=== PATIENT | female | born 1940 | race Caucasian/White ===

== ENCOUNTER 2019-10-30 16:44 | Observation (INO) ==
[2019-10-30] MEDS ORDERED: Ondansetron 4 MG/2 ML VIAL IVP PRN (17:49)
[2019-10-30] MEDS ORDERED: Mag Hydrox/Al Hydrox/Simeth 30 ML UDC PO PRN (17:49)
[2019-10-30] MEDS ORDERED: Naloxone 0.4 MG/ML INJ IVP PRN (17:49)
[2019-10-30] MEDS ORDERED: MOM Conc 10 ML UD.LIQ PO PRN (17:49)
[2019-10-30 18:46] LABS: Hematocrit 37.1 % (35.3-44.9); Hemoglobin 12.7 g/dL (11.5-15.4); Mean Corpuscular HGB Conc 34.2 g/dL (31.6-35.5); Mean Corpuscular Hemoglobin 32.2 pg (28.0-33.3); Mean Corpuscular Volume 93.9 fL (83.0-100.0); Mean Platelet Volume 10.2 fL (9.4-12.4); Monocytes # 0.7 K/mcL (0.0-1.3); Nucleated Red Blood Cells 0.1 /100 WBC (0); Platelet Count 178 K/mcL (140-400); Red Blood Count 3.95 M/mcL (3.82-4.97)
[2019-10-30 18:54] LABS: White Blood Count 35.3 K/mcL (4.3-11.1)
[2019-10-30 18:58] LABS: Alanine Aminotransferase 7 Units/L (7-52); Albumin 4.2 g/dL (3.5-5.7); Albumin/Globulin Ratio 1.6 (1.1-2.2); Alkaline Phosphatase 69 Units/L (34-104); Aspartate Amino Transferase 16 Units/L (13-39); BUN/Creatinine Ratio 17 (6-26); Bilirubin,Total 0.7 mg/dL (0.3-1.0); Blood Urea Nitrogen 14 mg/dL (8-23); Carbon Dioxide 29 mEq/L (23-29); Chloride 97 mEq/L (98-107); Globulin 2.6 g/dL (2.4-3.5); Glucose 107 mg/dL (70-105); Magnesium 2.3 mg/dL (1.6-2.6); Osmolality,Calculated 275 (280-300); Potassium 4.3 mEq/L (3.5-5.1); Sodium 132 mEq/L (136-145); Total Protein 6.8 g/dL (6.4-8.9); eGFR For African Americans > 60 (> 60); eGFR For Non-African Americans > 60 (> 60)
[2019-10-30 19:03] LABS: Prothrombin Time 11.5 Seconds (9.4-12.1)
[2019-10-30 19:14] LABS: Lymphocytes # 24.7 K/mcL (0.6-4.6); Neutrophils # 9.9 K/mcL (1.6-8.9); Platelet Estimate Normal (Normal); Smudge Cells Present (Not Present)
[2019-10-31] MEDS: *HR* OxyCODONE Immed Rel 5 MG TABLET PO PRN ×3 (00:54→20:17)
[2019-10-31 01:19] LABS: Bilirubin,Urine Negative (Negative); Blood,Urine Trace-lysed (Negative); Clarity,Urine Clear (Clear); Color,Urine Yellow (Yellow); Glucose,Urine (UA) Normal (Normal); Ketones,Urine 15 mg/dL (Negative); Leukocyte Esterase,Urine Large (Negative); Nitrite,Urine Negative (Negative); PH,Urine 5.5 pH Units (5.0-8.0); Protein,Urine Negative (Neg-Trace); Urobilinogen,Urine Normal (Normal)
[2019-10-31 01:26] LABS: Bacteria,Urine Few per hpf (None-Few); Squamous Epithelial Cell,Urine Few per lpf (None-Few); Transitional Epi Cells,Urine Few per hpf (None-Few); WBC,Urine 15-30 per hpf (0-3)
[2019-10-31] MEDS: amLODIPine 5 MG TABLET PO SCH (08:54)
[2019-10-31] MEDS: atenoloL 50 MG TABLET PO SCH (08:54)
[2019-10-31] MEDS: risperiDONE 0.25 MG TABLET PO SCH (08:54)
[2019-10-31] MEDS: Folic Acid 1 MG TABLET PO SCH (08:54)
[2019-10-31] MEDS: Aspirin Enteric Coated 81 MG Tablet PO SCH (08:54)
[2019-10-31] MEDS: Ascorbic Acid 500 MG TABLET PO SCH (08:54)
[2019-10-31 10:42] LABS: Hematocrit 34.3 % (35.3-44.9); Hemoglobin 11.6 g/dL (11.5-15.4); Mean Corpuscular HGB Conc 33.8 g/dL (31.6-35.5); Mean Corpuscular Volume 94.8 fL (83.0-100.0); Mean Platelet Volume 10.1 fL (9.4-12.4); Platelet Count 144 K/mcL (140-400); Red Blood Count 3.62 M/mcL (3.82-4.97); Red Cell Distribution Width 13.2 % (11.5-14.5); White Blood Count 25.2 K/mcL (4.3-11.1)
[2019-10-31 10:57] LABS: BUN/Creatinine Ratio 18 (6-26); Blood Urea Nitrogen 16 mg/dL (8-23); Calcium 8.5 mg/dL (8.6-10.3); Carbon Dioxide 28 mEq/L (23-29); Chloride 98 mEq/L (98-107); Glucose 105 mg/dL (70-105); Osmolality,Calculated 276 (280-300); Potassium 3.9 mEq/L (3.5-5.1); Sodium 132 mEq/L (136-145); eGFR For African Americans > 60 (> 60); eGFR For Non-African Americans > 60 (> 60)
[2019-10-31 11:16] LABS: Lymphocytes # 20.7 K/mcL (0.6-4.6)
[2019-10-31 11:17] LABS: Platelet Estimate Decreased (Normal); Reactive Lymphocytes Present (Not Present); Smudge Cells Present (Not Present)
[2019-11-01] MEDS: atenoloL 50 MG TABLET PO SCH (08:53)
[2019-11-01] MEDS: Ascorbic Acid 500 MG TABLET PO SCH (08:53)
[2019-11-01] MEDS: risperiDONE 0.25 MG TABLET PO SCH (08:53)
[2019-11-01] MEDS: Folic Acid 1 MG TABLET PO SCH (08:54)
[2019-11-01] MEDS: Aspirin Enteric Coated 81 MG Tablet PO SCH (08:54)
[2019-11-01] MEDS: amLODIPine 5 MG TABLET PO SCH (08:54)
[2019-11-01 09:28] LABS: Hematocrit 38.3 % (35.3-44.9); Hemoglobin 12.9 g/dL (11.5-15.4); Mean Corpuscular HGB Conc 33.7 g/dL (31.6-35.5); Mean Corpuscular Hemoglobin 32.1 pg (28.0-33.3); Mean Corpuscular Volume 95.3 fL (83.0-100.0); Mean Platelet Volume 10.3 fL (9.4-12.4); Nucleated Red Blood Cells 0.1 /100 WBC (0); Platelet Count 170 K/mcL (140-400); Red Blood Count 4.02 M/mcL (3.82-4.97); Red Cell Distribution Width 13.1 % (11.5-14.5); White Blood Count 27.7 K/mcL (4.3-11.1)
[2019-11-01 09:33] LABS: BUN/Creatinine Ratio 18 (6-26); Blood Urea Nitrogen 15 mg/dL (8-23); Carbon Dioxide 32 mEq/L (23-29); Chloride 96 mEq/L (98-107); Glucose 119 mg/dL (70-105); Osmolality,Calculated 276 (280-300); Potassium 3.9 mEq/L (3.5-5.1); Sodium 132 mEq/L (136-145); eGFR For African Americans > 60 (> 60); eGFR For Non-African Americans > 60 (> 60)
[2019-11-01 11:36] LABS: Lymphocytes # 22.2 K/mcL (0.6-4.6); Neutrophils # 5.5 K/mcL (1.6-8.9); Platelet Estimate Normal (Normal); Smudge Cells Present (Not Present)
[2019-11-01] MEDS: 0.9 % Sodium Chloride 1,000 ML IVC SCH (19:43)
[2019-11-01] MEDS: *HR* OxyCODONE Immed Rel 5 MG TABLET PO PRN (22:53)
[2019-11-02] MEDS: Melatonin 3 MG TABLET PO PRN ×2 (02:13→21:08)
[2019-11-02] MEDS: Acetaminophen 325 MG TABLET PO PRN ×2 (05:26→21:08)
[2019-11-02 07:56] LABS: Hematocrit 36.5 % (35.3-44.9); Hemoglobin 12.6 g/dL (11.5-15.4); Mean Corpuscular HGB Conc 34.5 g/dL (31.6-35.5); Mean Corpuscular Hemoglobin 32.1 pg (28.0-33.3); Mean Corpuscular Volume 92.9 fL (83.0-100.0); Mean Platelet Volume 10.1 fL (9.4-12.4); Platelet Count 181 K/mcL (140-400); Red Blood Count 3.93 M/mcL (3.82-4.97); Red Cell Distribution Width 12.9 % (11.5-14.5)
[2019-11-02 08:22] LABS: BUN/Creatinine Ratio 22 (6-26); Blood Urea Nitrogen 16 mg/dL (8-23); Calcium 8.8 mg/dL (8.6-10.3); Carbon Dioxide 25 mEq/L (23-29); Chloride 98 mEq/L (98-107); Glucose 120 mg/dL (70-105); Osmolality,Calculated 274 (280-300); Potassium 4.1 mEq/L (3.5-5.1); Sodium 131 mEq/L (136-145); eGFR For African Americans > 60 (> 60); eGFR For Non-African Americans > 60 (> 60)
[2019-11-02 08:36] LABS: Lymphocytes # 25.1 K/mcL (0.6-4.6); Neutrophils # 5.9 K/mcL (1.6-8.9); Platelet Estimate Normal (Normal); Smudge Cells Present (Not Present)
[2019-11-02] MEDS: Folic Acid 1 MG TABLET PO SCH (08:46)
[2019-11-02] MEDS: atenoloL 50 MG TABLET PO SCH (08:46)
[2019-11-02] MEDS: amLODIPine 5 MG TABLET PO SCH (08:46)
[2019-11-02] MEDS: Ascorbic Acid 500 MG TABLET PO SCH (08:46)
[2019-11-02] MEDS: risperiDONE 0.25 MG TABLET PO SCH (08:46)
[2019-11-02] MEDS: Aspirin Enteric Coated 81 MG Tablet PO SCH (08:46)
[2019-11-02] MEDS: Amoxicillin 500 MG CAPSULE PO SCH ×2 (12:51→21:08)
[2019-11-02] MEDS: 0.9 % Sodium Chloride 1,000 ML IVC SCH ×2 (12:56→23:24)
[2019-11-03] MEDS: 0.9 % Sodium Chloride 1,000 ML IVC SCH (01:56)
[2019-11-03 06:45] LABS: Basophils % 0.2 %; Eosinophils # 0.1 K/mcL (0.0-0.6); Eosinophils % 0.6 %; Hematocrit 33.1 % (35.3-44.9); Hemoglobin 11.3 g/dL (11.5-15.4); Immature Granulocytes % 0.3 % (0-4); Lymphocytes # 15.7 K/mcL (0.6-4.6); Lymphocytes % 74.7 %; Mean Corpuscular HGB Conc 34.1 g/dL (31.6-35.5); Mean Corpuscular Hemoglobin 31.8 pg (28.0-33.3); Mean Corpuscular Volume 93.2 fL (83.0-100.0); Monocytes # 0.4 K/mcL (0.0-1.3); Monocytes % 1.7 %; Neutrophils # 4.7 K/mcL (1.6-8.9); Platelet Count 168 K/mcL (140-400); Red Blood Count 3.55 M/mcL (3.82-4.97); Red Cell Distribution Width 12.8 % (11.5-14.5); Segmented Neutrophils % 22.5 %
[2019-11-03 07:08] LABS: BUN/Creatinine Ratio 19 (6-26); Blood Urea Nitrogen 11 mg/dL (8-23); Calcium 8.3 mg/dL (8.6-10.3); Carbon Dioxide 26 mEq/L (23-29); Chloride 102 mEq/L (98-107); Glucose 104 mg/dL (70-105); Osmolality,Calculated 282 (280-300); Potassium 3.9 mEq/L (3.5-5.1); Sodium 136 mEq/L (136-145); eGFR For African Americans > 60 (> 60); eGFR For Non-African Americans > 60 (> 60)
[2019-11-03 08:11] LABS: Anisocytosis 1+ (Not Present); Platelet Estimate Normal (Normal); Reactive Lymphocytes Present (Not Present); Smudge Cells Present (Not Present)
[2019-11-03] MEDS: Ascorbic Acid 500 MG TABLET PO SCH (08:57)
[2019-11-03] MEDS: Folic Acid 1 MG TABLET PO SCH (08:57)
[2019-11-03] MEDS: Amoxicillin 500 MG CAPSULE PO SCH ×2 (08:57→20:27)
[2019-11-03] MEDS: risperiDONE 0.25 MG TABLET PO SCH (08:58)
[2019-11-03] MEDS: Aspirin Enteric Coated 81 MG Tablet PO SCH (08:58)
[2019-11-03] MEDS: atenoloL 50 MG TABLET PO SCH (08:58)
[2019-11-03] MEDS: amLODIPine 5 MG TABLET PO SCH (08:58)
[2019-11-03] MEDS: Acetaminophen 325 MG TABLET PO PRN (15:21)
[2019-11-03] MEDS: Melatonin 3 MG TABLET PO PRN (21:21)
[2019-11-04] MEDS: amLODIPine 5 MG TABLET PO SCH (08:19)
[2019-11-04] MEDS: Ascorbic Acid 500 MG TABLET PO SCH (08:19)
[2019-11-04] MEDS: risperiDONE 0.25 MG TABLET PO SCH (08:19)
[2019-11-04] MEDS: Folic Acid 1 MG TABLET PO SCH (08:19)
[2019-11-04] MEDS: atenoloL 50 MG TABLET PO SCH (08:20)
[2019-11-04] MEDS: Amoxicillin 500 MG CAPSULE PO SCH ×2 (08:28→20:35)
[2019-11-04] MEDS: Aspirin Enteric Coated 81 MG Tablet PO SCH (08:29)
[2019-11-04 13:45] LABS: BUN/Creatinine Ratio 14 (6-26); Blood Urea Nitrogen 10 mg/dL (8-23); Calcium 8.8 mg/dL (8.6-10.3); Carbon Dioxide 27 mEq/L (23-29); Chloride 98 mEq/L (98-107); Glucose 148 mg/dL (70-105); Osmolality,Calculated 278 (280-300); Potassium 3.6 mEq/L (3.5-5.1); Sodium 133 mEq/L (136-145); eGFR For African Americans > 60 (> 60); eGFR For Non-African Americans > 60 (> 60)
[2019-11-05] MEDS: Melatonin 3 MG TABLET PO PRN (00:15)
[2019-11-05 07:37] VITALS: BP 124/71
[2019-11-05] MEDS: Aspirin Enteric Coated 81 MG Tablet PO SCH (08:11)
[2019-11-05] MEDS: Amoxicillin 500 MG CAPSULE PO SCH (08:11)
[2019-11-05] MEDS: Ascorbic Acid 500 MG TABLET PO SCH (08:11)
[2019-11-05] MEDS: Folic Acid 1 MG TABLET PO SCH (08:11)
[2019-11-05] MEDS: amLODIPine 5 MG TABLET PO SCH (08:11)
[2019-11-05] MEDS: risperiDONE 0.25 MG TABLET PO SCH (08:11)
[2019-11-05] MEDS: Acetaminophen 325 MG TABLET PO PRN (08:12)
[2019-11-05] MEDS: atenoloL 50 MG TABLET PO SCH (08:13)
== END 2019-11-05 16:07 | disposition home or self-care (01) ==
LOC: INPPIK → INTOOBSV 17:43 → OBSVTOIN 17:43 → INPPIK 11-01 15:14
PROVIDERS: ADMIT Family Medicine; ATTEND Family Medicine